=== PATIENT | male | born 1995 | race Hispanic/Latino ===

== ENCOUNTER 2022-10-07 18:18 | Inpatient (IN) | payer OTHER ==
[~2022-10-07 18:18] MED LIST: Iopamidol-370 76% 500 ML 1 ML ONE
[2022-10-07 19:00] LABS: #Basophils 0.1 thou/uL (0.0-0.2); #Eosinphils 0.2 thou/uL (0.0-0.7); #Lymphocytes 2.2 thou/uL (1.20-3.40); #Monocytes 0.7 thou/uL (0.11-0.59); #Neutrophils 5.4 thou/uL (1.40-6.50); %Basophils 0.6 % (0.0-1.0); %Eosinophils 2.1 % (0.0-10.0); %Lymphocytes 25.4 % (21.0-51.0); %Neutrophils 63.9 % (42.0-75.0); Hemoglobin 15.1 g/dL (14.0-18.0); Mean Corpuscular Hemoglobin 30.8 pg (27.0-31.0); Mean Corpuscular Volume 90.8 fl (78.0-98.0); Mean Platelet Volume 8.9 fL (7.4-10.4); Platelet Count 238 10x3/uL (130-400); RBC Distribution Width 11.6 % (11.5-14.5); Red Blood Cell (RBC) Count 4.89 mill/uL (4.70-6.10); White Blood Cell (WBC) Count 8.5 10x3/uL (4.8-10.8)
[2022-10-07 19:20] LABS: ALT (SGPT) 13 U/L (8-55); AST (SGOT) 16 U/L (5-34); Albumin 4.4 g/dL (3.5-5.0); Alkaline Phosphatase 85 U/L (40-110); Anion Gap 12 mmol/L (10-20); BUN (Urea Nitrogen) 26 mg/dL (8.9-20.6); Bilirubin, Total 0.5 mg/dL (0.2-1.2); Calc. Creatinine Clearance 0 mL/min (70-130); Carbon Dioxide 22 mmol/L (22-29); Chloride 106 mmol/L (98-107); Estimated GFR 94; Globulin 2.8 g/dL (2.4-3.5); Glucose 108 mg/dL (70-105); Potassium 3.7 mmol/L (3.5-5.1); Protein, Total 7.2 g/dL (6.0-8.3); Sodium 136 mmol/L (136-145)
[2022-10-07] MEDS ORDERED: Morphine 4 MG/ML VIAL ONE (22:00)
[2022-10-07] MEDS ORDERED: Ondansetron PF 4 MG/2 ML Vial ONE (22:00)
[2022-10-07 22:15] LABS: Bilirubin Negative (Negative); Blood, Urine Negative (Negative); Clarity Clear (Clear); Glucose, Urine (Dipstick) Normal (Negative); Ketone, Urine Negative (Negative); Leukocyte Negative Leu/uL (Negative); Nitrite Negative (Negative); Protein, Urine (Dipstick) Negative (Neg-Trace); Urobilinogen Normal mg/dL (Less than 2)
[2022-10-07] MEDS ORDERED: Piperacillin/Tazobactam 4.5 GM VIAL ONE (22:57)
[2022-10-08 00:45] VITALS: BMI 36.3
[2022-10-08] MEDS ORDERED: Morphine 4 MG/ML VIAL SLOW IVP PRN ×2 (00:59→10:23)
[2022-10-08] MEDS ORDERED: Ondansetron ODT 4 MG TAB SL PRN (01:00)
[2022-10-08] MEDS ORDERED: Ondansetron PF 4 MG/2 ML Vial IVP PRN (01:00)
[2022-10-08] MEDS ORDERED: Piperacillin/Tazobactam 3.375 GM in Sodium Chloride 0.9% 100 ML IVPB SCH (03:00)
[2022-10-08] MEDS: Sodium Chloride 0.9% 1,000 ML IV SCH ×2 (03:04→09:05)
[2022-10-08 04:51] LABS: SARS-CoV-2 NAA Rapid Test Not Detected (NotDetected)
[2022-10-08] MEDS ORDERED: Ketorolac Tromethamine 30 MG/ML VIAL IVP PRN (10:22)
[2022-10-08] MEDS ORDERED: Lactated Ringer's 1,000 ML IV SCH (10:30)
[2022-10-08] MEDS ORDERED: Ketorolac Tromethamine 30 MG/ML VIAL IVP SCH (10:30)
[2022-10-08] MEDS ORDERED: Sodium Chloride 0.9% 100 ML ONE (14:47)
[2022-10-08] MEDS ORDERED: Piperacillin/Tazobactam 3.375 GM VIAL ONE (14:47)
[2022-10-08] MEDS ORDERED: Bupivacaine HCl 0.5%/Epinephrine 1:200,000/PF 30 ml Vial ONE (17:20)
[2022-10-08] MEDS ORDERED: Bupivacaine/Epinephrine 0.25% 30 ML VIAL ONE (17:21)
[2022-10-08] MEDS ORDERED: fentaNYL PF 100 MCG/2 ML SYRINGE ONE (17:26)
[2022-10-08] MEDS ORDERED: HYDROmorphone 0.5 MG/0.5 ML SYRINGE ONE (17:26)
[2022-10-08] MEDS ORDERED: Lidocaine 1% PF 5 ML VIAL ONE (17:35)
[2022-10-08] MEDS ORDERED: Ondansetron PF 4 MG/2 ML Vial ONE (17:35)
[2022-10-08] MEDS ORDERED: Dexamethasone 20 MG/5 ML VIAL ONE (17:35)
[2022-10-08] MEDS ORDERED: PROPOFOL 200 MG/20 ML VIAL ONE (17:35)
[2022-10-08] MEDS ORDERED: Rocuronium Bromide 10 MG/ML (10ML VIAL) ONE (17:35)
[2022-10-08] MEDS ORDERED: Midazolam HCl 2 mg/2 ml Vial ONE (17:36)
[2022-10-08] MEDS ORDERED: Acetaminophen 500 MG TAB PO PRN (17:57)
[2022-10-08] MEDS ORDERED: Ibuprofen 600 MG TAB PO PRN (17:57)
[2022-10-08] MEDS ORDERED: traMADol HCl 50 MG TAB PO PRN (17:57)
[2022-10-08] MEDS ORDERED: Acetaminophen 500 MG TAB PO SCH (18:00)
[2022-10-08] MEDS ORDERED: Fentanyl 100 MCG/2 ML VIAL ONE (18:34)
[2022-10-08] MEDS ORDERED: Ondansetron HCl/PF 4 MG/2 ML Vial IVP PRN (18:44)
[2022-10-08] MEDS ORDERED: HYDROmorphone 2 MG/ML VIAL SLOW IVP PRN (18:44)
[2022-10-08] MEDS ORDERED: Promethazine HCl 25 MG/ML VIAL IM PRN (18:44)
[2022-10-08 19:45] VITALS: BP 109/75; TEMP 97.5
== END 2022-10-08 20:50 | disposition home or self-care (01) | DRG 343 ==
LOC: ERS 18:18 → SURG B 22:59
PROVIDERS: ADMIT Specialist; ATTEND Specialist
PROC: 0DTJ4ZZ Resection of Appendix, Percutaneous Endoscopic Approach (ICD-10-PCS; principal; 2022-10-08)
DX: K35.80 Unspecified acute appendicitis (principal); Z20.822 Contact with and (suspected) exposure to COVID-19
CPT/HCPCS: 36415; 74177; 80053; 81003; 85025; 96374; 96375; A4649; C1713; J1100; J1170; J1885; J2250; J2270; J2405; J2543; J2704; J3010; J3490; J7050; J7120; Q9967; U0002